=== PATIENT | female | born 2000 | race Caucasian/White ===

== ENCOUNTER → 2024-04-18 | Outpatient (CLI) | payer OTHER | LOC: COL.RAD 10:18 | DX: R19.04 Left lower quadrant abdominal swelling, mass and lump (principal) ==

== ENCOUNTER → 2024-04-26 | Outpatient (CLI) | payer OTHER ==
[~2024-04-26] MED LIST: Iohexol 300 - 100 ML VIAL IV ONE; NS 100 ML IV SCH
== END ==
LOC: COL.RAD 08:12
DX: R19.04 Left lower quadrant abdominal swelling, mass and lump (principal)
CPT/HCPCS: Q9967